=== PATIENT | female | born 1950 | race Caucasian/White ===

== ENCOUNTER 2023-04-27 14:36 | Emergency (ER) | payer MEDICARE, SELFPAY ==
--- NOTE | ~2023-04-27 | US_ITS ---
EXAMINATION: US pelvic complete w TV DATE: 04/27/2023 17:57 INDICATION: Postmenopausal bleeding. TECHNIQUE: Multiple transabdominal and transvaginal sonographic images of the pelvis were obtained. COMPARISON: None. FINDINGS: TRANSABDOMINAL ULTRASOUND: The uterus measures 10.4 x 5.8 x 6.1 cm. There is no free fluid in the pelvis. TRANSVAGINAL ULTRASOUND: The endometrial complex measures 13 mm in thickness. There are 2.5 cm and 2.5 cm intramural fibroids. There is a 5.4 x 3.5 x 4.6 cm heterogeneous mass in the cervix. The ovaries are not visualized. IMPRESSION: 1. 5.4 cm heterogeneous mass in the cervix suspicious for malignancy. 2. Thickened endometrial complex, which may be secondary to obstruction in the cervix. Endometrial ca rcinoma is not excluded. 3. Uterine fibroids. Reviewed, dictated and finalized at location E. L SALES MANAGER IMPRESSION: 1. 5.4 cm heterogeneous mass in the cervix suspicious for malignancy. 2. Thickened endometrial complex, which may be secondary to obstruction in the cervix. Endometrial carcinoma is not excluded. 3. Uterine fibroids.
[2023-04-27 14:37] VITALS: BP 183/82; PULSE 93; RESP 16; TEMP 36.6; O2SAT 98
[2023-04-27 14:45] VITALS: PULSE 90; RESP 18; O2SAT 98
[2023-04-27 15:20] LABS: Basophils Absolute Auto 0.1 K/mm3 (0.0-0.1); Basophils Percent Auto 0.8 % (0.2-1.2); Eosinophils Absolute Auto 0.1 K/mm3 (0-0.3); Eosinophils Percent Auto 0.8 % (0-4.4); Hematocrit 45.7 % (37.0-47.0); Immature Granulocyte Absolute 0.03 K/mm3 (0.00-0.031); Immature Granulocyte Percent A 0.3 % (0-0.5); Lymphocytes Percent Auto 16.2 % (18.3-44.2); Mean Corpuscular HGB Conc 32.8 g/dl (32-36); Mean Corpuscular Hemoglobin 29.8 pg (26-34); Mean Corpuscular Volume 90.7 fl (80-100); Mean Platelet Volume 9.1 fl (7.4-10.4); Monocytes Percent Auto 9.4 % (2.6-8.5); Neutrophils Absolute Auto 7.6 K/mm3 (1.3-6.7); Neutrophils Percent Auto 72.5 % (45.5-73.1); Platelet Count Result 257 k/mm3 (150-375); Red Blood Count 5.04 M/mm3 (4.2-5.4); Red Cell Distribution Width 13.5 % (11.5-14.5); White Blood Count 10.5 K/mm3 (4.5-10.0)
[2023-04-27 15:31] LABS: Prothrombin Time 13.7 Seconds (11.1-14.7)
[2023-04-27 15:32] LABS: Bacteria Urine None Seen /hpf; Need Manual Microscopic Reviewed; Non Pathogenic Casts 0-2; Partial Thromboplastin Time 27.5 SECONDS (22.3-36.8); RBC Urine >100 /hpf (0-2); Squamous Epithelial Cell Urine None seen /hpf (Few); WBC Urine 21-50 /hpf
[2023-04-27 15:36] LABS: Appearance Urine Turbid (Clear); Bilirubin Urine 1+ (Negative); Blood Urine 3+ (Negative); Color Urine Red (Yellow); Glucose Urine UA Negative (Negative); Ketones Urine Negative (Negative); Leukocyte Esterase Ur 1+ LEU/UL (Negative); Nitrate Urine Negative (Negative); Protein Urine 2+ mg/dL (Negative); Specific Grav Ur 1.027 (1.001-1.035); pH Urine 5.5 (5.0-9.0)
[2023-04-27 15:38] LABS: Alanine Aminotransferase 21 U/L (6-35); Albumin Level 4.4 g/dL (3.5-5.1); Alkaline Phosphatase 166 U/L (38-126); Anion Gap 9 mmol/L (8-16); Aspartate Amino Transferase 31 U/L (14-36); Bilirubin,Total 0.6 mg/dL (0.2-1.3); Blood Urea Nitrogen 15 mg/dL (7-17); Calcium 9.7 mg/dL (8.4-10.2); Carbon Dioxide 25 mmol/L (22-30); Chloride 106 mmol/L (98-107); Estimated CRCL calculation 54 ml/min; Estimated Glomerular Filt Rate > 60; Glucose 112 mg/dL (65-110); Potassium 3.9 mmol/L (3.4-5.0); Sodium 140 mmol/L (137-145)
[2023-04-27 15:39] LABS: Add Urine Microscopic? YES
[2023-04-27 16:40] VITALS: BP 177/84; PULSE 84; RESP 16; O2SAT 98
--- NOTE | 2023-04-27 16:58 | ED.FEMALEGU ---
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 Reports over the last couple of weeks she has had pelvic cramping. Reports the last couple of days she started to develop vaginal bleeding. Denies fever, vomiting or dysuria. Related Data Allergies Allergy/AdvReac Type Severity Reaction Status Date / Time Latex, Natural Rubber Allergy Redness of Verified 04/27/23 14:41 Skin Review of Systems Review of Systems: CONSTITUTIONAL: Denies fever GASTROINTESTINAL: Reports pelvic cramping. GENITOURINARY: Denies dysuria or hematuria. All systems reviewed & are unremarkable except as noted in HPI and below PMFSH Past Medical History Medical History (Updated 04/27/23 @ 18:37 by Karuna Haywood PA-C) History of hypertension Social History Social History (Updated 04/27/23 @ 17:08 by Karuna Haywood PA-C) Smoking status: Never smoker Exam Narrative: GENERAL: Well-appearing, well-nourished, and in no acute distress. HEAD: Normocephalic, atraumatic. EYES: EOMI. CHEST: Clear to auscultation. No respiratory distress. No wheezes rales or rhonchi HEART: Regular rate and rhythm. No murmur heard. Normal peripheral pulses. ABDOMEN: Soft, nontender, nondistended, normal active bowel sounds. EXTREMITIES: Normal range of motion. No edema. SKIN: Warm, dry, no rash. NEURO: No focal deficits. Alert and oriented x3. PSYCH: Normal mood and affect PELVIC: Small amount of dark red blood in the vaginal vault. Abnormal cervical polyp/lesion noted Course Course Emergency Course: patient and family updated on workup and agree with plan of care Consultations Consultation #1: Spoke with Dr. Schroeder about patient and workup who will follow up in clinic Date: 04/27/23 Vital Signs Vital signs: Vital Signs Temperature 97.9 F 04/27/23 14:37 Pulse Rate 93 04/27/23 14:37 Respiratory Rate 16 04/27/23 14:37 Blood Pressure 183/82 H 04/27/23 14:37 Pulse Oximetry 98 04/27/23 14:37 Oxygen Delivery Room Air 04/27/23 14:37 Temperature 97.9 F 04/27/23 14:37 Pulse Rate 84 04/27/23 16:40 Respiratory Rate 16 04/27/23 16:40 Blood Pressure 177/84 H 04/27/23 16:40 Pulse Oximetry 98 04/27/23 16:40 Oxygen Delivery Room Air 04/27/23 14:37 MDM - Female Genitourinary MDM Narrative Medical decision making narrative: Patient presents to the emergency department for abnormal uterine bleeding. Blood pressure elevated, patient is asymptomatic with this. She did down trend without intervention. Her other vitals are normal. CBC with mild leukocytosis to 10.5. Metabolic panel without concerning findings. Urine without evidence of infection. This will be sent for culture. Patient given dose of antibiotics IV. I did see an abnormal lesion on her cervix on exam. Small amount of dark red blood in the vaginal vault. Pelvic ultrasound shows a 5.4 cm heterogenous mass in the cervix suspicious for malignancy. Also shows a thickened endometrial complex. Patient and family updated on workup and agree with plan of care. Spoke with Dr. Schroeder about patient and workup who will follow up in clinic Differential Diagnosis Differential diagnosis: Likely urinary tract infection and other ( cervical cancer, endometrial cancer) Lab Data Attestation: I reviewed the patient's lab results. 04/27/23 15:13 04/27/23 15:13 Labs: Lab Results 04/27/23 Range/Units 15:13 WBC 10.5 H (4.5-10.0) K/mm3 RBC 5.04 (4.2-5.4) M/mm3 Hgb 15.0 (12.0-15.0) g/dL Hct 45.7 (37.0-47.0) % MCV 90.7 (80-100) fl MCH 29.8 (26-34) pg MCHC 32.8 (32-36) g/dl RDW 13.5 (11.5-14.5) % Plt Count 257 (150-375) k/mm3 MPV 9.1
== END 2023-04-27 18:55 | disposition home or self-care (01) ==
PROVIDERS: Student in an Organized Health Care Education/Training Program; Emergency Provider Physician Assistant; PCP Internal Medicine
DX: N93.9 Abnormal uterine and vaginal bleeding, unspecified (principal); N88.9 Noninflammatory disorder of cervix uteri, unspecified; R93.89 Abnormal findings on diagnostic imaging of other specified body structures; N39.0 Urinary tract infection, site not specified; I10 Essential (primary) hypertension
CPT/HCPCS: 36415; 76830; 76856; 80053; 81001; 85025; 85610; 85730; 86850; 86900; 86901; 87086; 96365; 99284; J0696

== ENCOUNTER 2023-06-16 01:10 | Day surgery (SDC) | payer MEDICARE, SELFPAY ==
[2023-06-09 13:22] VITALS: BMI 36.0
--- NOTE | 2023-06-09 13:36 | PC.NURSE ---
Report to the Outpatient Waiting Room, entrance under the green pavilion located off [facility], at time __1030 on date __06/16/23 . Planned Procedure Time: ___829 . Time changes happen often and if your time is changed the preop area will call you the afternoon before. - You and your visitor will be asked to self-screen and do not enter if you have any COVID symptoms. - A mask is optional within the hospital at this time. Patients may have clear liquids (water, carbonated beverages, clear teas, apple juice) until 3 hours prior to surgery with a maximum of 20 ounces. - No food from midnight until time of surgery - Infants may have breast milk until 4 hours before surgery, infant formula 6 hours prior to surgery. - Children will be allowed to drink immediately following surgery. If applicable, please bring a bottle or sippy cup to assist with drinking. Juice, water, soda, and popsicles are readily available. For infants on formula, please bring formula the day of surgery. Pacifiers are allowed. Take the following medications with a SIP of water the morning of surgery: __AMLODIPINE, METOPROLOL DO NOT STOP ANY OF YOUR OTHER PRESCRIPTION MEDICATIONS PRIOR TO SURGERY ?EXCEPT THE FOLLOWING Medications to discontinue - _IBUPROFEN, MELOXICAM PER DR. BARBA - CALL FOR INSTRUCTIONS_ Medications to discontinue per ANESTHESIA -_SUPPLEMENTS 3 DAYS PRIOR TO SURGERY, Date to take last dose 06/12/23_ Please no make-up, nail kazakh, hairspray, perfume, deodorant, or body powder the day of surgery. No jewelry (including any body piercings) or valuables the day of surgery, leave them at home. Please take a shower or bath the night before, or the morning of, surgery with an antibacterial soap. Wear comfortable, loose fitting clothing. Children are encouraged to wear pajamas. - Jewelry must be removed prior to entering the operating room. Rings and piercings that are not removed may be cut off. - The hospital will not accept responsibility for valuables. - Please leave all valuables, including medications, at home the day of surgery. If you are going home after surgery, a licensed sales route driver must drive you home. - NO public transportation without another adult if you receive anesthesia. - We recommend that an adult stay with you for 24 hours following discharge. - We also recommend that you do not drive, make important decision, drink alcoholic beverages, or take any drugs that were not prescribed by your health care provider for at least 24 hours after your discharge time. For Pediatric surgeries, we recommend two adults accompany the child home. Follow any additional instructions given to you from your surgeon. If you or anyone in your household have experienced Covid symptoms in the past week, please notify your surgeon or the nurse liaison at the phone number below for possible testing. Telephone instructions given to ___PT and asked if any additional questions and then verbalized understanding. Patient advised to call surgeon office or pre surgery nurse liaison [phone] if any additional questions.
--- NOTE | 2023-06-14 16:40 | PM.IMHP ---
H&P: HPI History of Present Illness Date/Time: 06/14/23 16:40 72-year-old female presents for evaluation regarding postmenopausal bleeding. Was seen emergency room due to heavy vaginal bleeding which has since resolved. Ultrasound performed as revealed enlarged uterus with 13mm thickness of the endometrium, as well as multiple fibroids. Also a 5x4 by for mass in the cervix was noted on ultrasound. Chief Complaint: Postmenopausal bleeding Review of Systems Review of Systems: All systems reviewed & are unremarkable except as noted in HPI and below PMFSH Past Medical History Medical History Anxiety Arthritis Breast cancer Cervical mass History of hypertension Hyperlipidemia Osteoporosis Vitamin D deficiency Surgical History Surgical History H/O breast surgery breast nodule removed/lymph node removed History of tonsillectomy Family History Family History Mother Pancreatic cancer Hypertension Son Kidney disorder Heart disease Cerebrovascular accident Diabetes mellitus type 2 Father Hypertension Diabetes mellitus type 2 Larynx cancer Social History Social History Smoking status: Never smoker Second hand tobacco smoke exposure: No Alcohol intake: current Alcohol use details: RARELY - MAYBE 4 DRINKS A YEAR Substance use: never Substance use type: does not use Do You Feel Safe in your Home?: Yes Lack of Transportation: No Lack of Food: Never True Current Housing: I Have Housing Concerned About Future Housing: No Difficulty Paying Gas/Electric Bills: No Difficulty Paying for Meds: No Currently Unemployed: No Education: High School Diploma/GED Difficulty w/ Childcare or Family Care: No Living arrangements: with family Additional living arrangements comments: Occupation/Education: retired Gender identity (if verbalized by the patient): Female Sexual Orientation (if Verbalized by the Patient): Straight or Heterosexual Spiritual care concerns: No Meds Home Medications and Allergies Home Medications Medication Instructions Recorded Confirmed Type amlodipine 10 mg tablet 10 mg PO DAILY 05/09/23 06/09/23 History cetirizine 10 mg capsule (Zyrtec) 10 mg PO DAILY PRN Congestion 05/09/23 06/09/23 History choline bitartrate 650 mg tablet 650 mg PO DAILY 05/09/23 06/09/23 History cyanocobalamin (vitamin B-12) 1,000 mcg PO DAILY 05/09/23 06/09/23 History 1,000 mcg capsule lutein 20 mg capsule 20 mg PO DAILY 05/09/23 06/09/23 History meloxicam 7.5 mg tablet 7.5 mg PO DAILY PRN Pain 05/09/23 06/09/23 History metoprolol tartrate 50 mg tablet 50 mg PO BID 05/09/23 06/09/23 History montelukast 10 mg tablet 10 mg PO DAILY 05/09/23 06/09/23 History rosuvastatin 40 mg tablet 40 mg PO DAILY 05/09/23 06/09/23 History ibuprofen 200 mg tablet 400 mg PO TID PRN Pain 06/09/23 06/09/23 History turmeric 400 mg capsule 400 mg PO DAILY 06/09/23 06/09/23 History Allergies Allergy/AdvReac Type Severity Reaction Status Date / Time Latex, Natural Rubber Allergy Redness of Verified 06/09/23 13:15 Skin adhesive tape AdvReac SKIN Verified 06/09/23 13:16 IRRITATION Exam Const: General: cooperative, healthy appearing and comfortable Resp: Effort & Inspection: normal respiratory effort Auscultation: clear to auscultation bilaterally Cardio: Rate: regular rate Rhythm: regular rhythm GI: Inspection: normal to inspection Auscultation: normal bowel sounds : External Female Exam: normal external appearance Speculum Exam - Vagina: normal appearance of the vagina Speculum Exam - Cervix: Nabothian cyst present Bimanual exam- vagina & uterus: enlarged ( 10-12 week size) Bimanual Exam- Adnexa, other: normal adnexae A
[2023-06-16] MEDS: ACETAMINOPHEN 500 MG TABLET 1000 MG PO (06:42)
[2023-06-16 06:49] VITALS: BP 138/94; PULSE 76; RESP 16; TEMP 36.2; O2SAT 99
--- NOTE | 2023-06-16 06:54 | WPDANESEPPF ---
Anes - Initial Pre Proc Eval Procedure: Operation Date: 06/16/23 08:30 Proposed Procedures p Hysteroscopy Dilation and Curettage - Brandt Schroeder MD s Loop Electrical Excision Procedure - Brandt Schroeder MD Date/Time: 06/16/23 06:54 Surgeon: Brandt Schroeder MD Pre Op Diagnosis: Post Menopausal Bleeding, Cervical Polyp Patient Data Age: 72 Gender: F Height: 1.6 m Weight: 96.5 kg Last Vital Signs Temp 36.2 C L 06/16/23 06:49 Pulse 76 06/16/23 06:49 Resp 16 06/16/23 06:49 BP 138/94 H 06/16/23 06:49 Pulse Ox 99 06/16/23 06:49 O2 Del Method Room Air 06/16/23 06:49 Allergies Allergy/AdvReac Type Severity Reaction Status Date / Time Latex, Natural Rubber Allergy Redness of Verified 06/16/23 06:34 Skin adhesive tape AdvReac SKIN Verified 06/16/23 06:34 IRRITATION Home Medications Medication Instructions Recorded Confirmed Type amlodipine 10 mg tablet 10 mg PO DAILY 05/09/23 06/09/23 History cetirizine 10 mg capsule (Zyrtec) 10 mg PO DAILY PRN Congestion 05/09/23 06/09/23 History choline bitartrate 650 mg tablet 650 mg PO DAILY 05/09/23 06/09/23 History cyanocobalamin (vitamin B-12) 1,000 mcg PO DAILY 05/09/23 06/09/23 History 1,000 mcg capsule lutein 20 mg capsule 20 mg PO DAILY 05/09/23 06/09/23 History meloxicam 7.5 mg tablet 7.5 mg PO DAILY PRN Pain 05/09/23 06/09/23 History metoprolol tartrate 50 mg tablet 50 mg PO BID 05/09/23 06/09/23 History montelukast 10 mg tablet 10 mg PO DAILY 05/09/23 06/09/23 History rosuvastatin 40 mg tablet 40 mg PO DAILY 05/09/23 06/09/23 History ibuprofen 200 mg tablet 400 mg PO TID PRN Pain 06/09/23 06/09/23 History turmeric 400 mg capsule 400 mg PO DAILY 06/09/23 06/09/23 History Patient hx anesthesia problems: post op nausea/vomiting Family hx anesthesia problems: none Results Review: All pre-operative results and documents have been reviewed as part of the pre-operative evaluation. [facility] Past Medical History Medical History Anxiety Arthritis Breast cancer Cervical mass History of hypertension Hyperlipidemia Osteoporosis Vitamin D deficiency Surgical History Surgical History H/O breast surgery breast nodule removed/lymph node removed History of tonsillectomy Family History Family History Mother Pancreatic cancer Hypertension Son Kidney disorder Heart disease Cerebrovascular accident Diabetes mellitus type 2 Father Hypertension Diabetes mellitus type 2 Larynx cancer Social History Social History Smoking status: Never smoker Second hand tobacco smoke exposure: No Alcohol intake: current Alcohol use details: RARELY - MAYBE 4 DRINKS A YEAR Substance use: never Substance use type: does not use Do You Feel Safe in your Home?: Yes Lack of Transportation: No Lack of Food: Never True Current Housing: I Have Housing Concerned About Future Housing: No Difficulty Paying Gas/Electric Bills: No Difficulty Paying for Meds: No Currently Unemployed: No Education: High School Diploma/GED Difficulty w/ Childcare or Family Care: No Living arrangements: with family Additional living arrangements comments: Occupation/Education: retired Gender identity (if verbalized by the patient): Female Sexual Orientation (if Verbalized by the Patient): Straight or Heterosexual Spiritual care concerns: No Anes - Eval Final PreProcedure Day of Procedure 06/16/23 06:54 Patient weight: obese Lungs: clear to auscultation Airway: Mallampati scale class III Neurological: alert and oriented Last oral intake: >/= 8 hours ASA classification: III Emergent: no Anesthetic plan: proceed Anesthesia type and monitoring: general GIVS and
[2023-06-16] MEDS: LACTATED RINGERS 1,000 ML 30 ML IV CONT (07:08)
--- NOTE | 2023-06-16 08:43 | WPDHPUPDATE1 ---
History and Physical Update Update Date/Time: 06/16/23 08:43 History and Physical has been reviewed, including an updated exam of the patient. There are NO changes in the patient's condition. Risks, benefits, and alternatives have been discussed and questions answered. Patient agrees to proceed with procedure.
--- NOTE | 2023-06-16 09:25 | W.PM.PROC2 ---
Procedure Note - Detailed Date of Procedure 06/16/23 Pre-op Diagnosis 1. Postmenopausal bleeding 2. Endocervical polyp 3. Cervical mass on CT scan Post-op Diagnosis Same Procedure Performed 1. Diagnostic hysteroscopy 2. Endometrial polypectomies 3. Removal of endo cervical polyp 4. LEEP conization Surgeon Brandt Schroeder MD Anesthesia MAC Findings 1. Hysteroscopic exam revealed multiple polyps and small fibroids impinging the endometrial cavity 2. Endocervical polyp Description of Procedure Patient was prepped and draped in usual manner for this procedure. Cervix was dilated to allow the hysteroscope to be placed which then did reveal endometrial polyps. Also multiple fibroids impinging on the endometrial cavity. Using the appropriate instrumentation through the hysteroscope the polyps were removed. Curetting then of the rest of the cavity was performed. There was no significant bleeding from this portion of the procedure. Endometrial polyp was then removed without difficulty, LEEP specimen was obtained in both an ecto and endocervical manner. Bed of the biopsy site was cauterized and at this point the patient was sent to recovery room in stable condition. Estimated Blood Loss 10 Drains No Packing No Pathology Yes Complications No immediate complications Condition Stable Disposition PACU [facility] Billing Surgery - Charge Forward: Surgery Billing
[2023-06-16 09:31] VITALS: BP 132/96; PULSE 74; RESP 12; O2SAT 95
[2023-06-16 10:00] VITALS: BP 132/58; PULSE 71; RESP 16
[2023-06-16 10:21] VITALS: BP 130/56; PULSE 67; RESP 16
== END 2023-06-16 10:28 | disposition home or self-care (01) ==
PROVIDERS: PCP Internal Medicine; Visit Provider Obstetrics & Gynecology
PROC: 0U5B8ZZ Destruction of Endometrium, Via Natural or Artificial Opening Endoscopic (ICD-10-PCS; CPT 58563; principal; 2023-06-16 08:30)
PROC: 0UBC7ZZ Excision of Cervix, Via Natural or Artificial Opening (ICD-10-PCS; CPT 57522; 2023-06-16 08:30)
DX: N84.1 Polyp of cervix uteri (principal); D25.9 Leiomyoma of uterus, unspecified; N88.8 Other specified noninflammatory disorders of cervix uteri; N95.0 Postmenopausal bleeding; I10 Essential (primary) hypertension; E78.5 Hyperlipidemia, unspecified; E55.9 Vitamin D deficiency, unspecified; F41.9 Anxiety disorder, unspecified; M81.0 Age-related osteoporosis without current pathological fracture; E66.9 Obesity, unspecified; Z68.37 Body mass index [BMI] 37.0-37.9, adult; Z79.1 Long term (current) use of non-steroidal anti-inflammatories (NSAID); Z98.890 Other specified postprocedural states; Z85.3 Personal history of malignant neoplasm of breast; Z80.0 Family history of malignant neoplasm of digestive organs; Z80.2 Family history of malignant neoplasm of other respiratory and intrathoracic organs; Z82.49 Family history of ischemic heart disease and other diseases of the circulatory system
CPT/HCPCS: 58558; 57522; 88305; 88307; A9270; J1100; J2405; J2704; J3010; J7120

== ENCOUNTER 2024-12-19 12:02 | Outpatient (CLI) | payer MEDICARE, SELFPAY ==
--- NOTE | ~2024-12-19 | MM_ITS ---
EXAMINATION: MM screening [facility] BI w fahad HISTORY: Screening TECHNIQUE: Craniocaudal and mediolateral oblique 3-D tomosynthesis images were obtained and synthetic 2-D images were generated. CAD analysis was submitted and interpreted. COMPARISON: No prior mammogram is available for comparison at this institution. BREAST PARENCHYMAL COMPOSITION: Not dense: There are scattered areas of fibroglandular density. FINDINGS: There is distortion in the upper outer quadrant of the right breast with skin thickening surrounding the nipple. These findings are likely related to prior lumpectomy and possible radiation therapy. Clinically correlate. There is no mammographic evidence for malignancy in the left breast. IMPRESSION: 1. Distortion in the upper outer quadrant of the right breast with nearby skin thickening. Correlate for history of prior lumpectomy/radiation therapy. 2. Recommend comparison to previous outside mammograms. BI-RADS Category 0: Incomplete: Needs additional imaging evaluation. Reviewed, dictated and finalized at location B.
--- OUTSIDE RECORDS SUMMARY | 2024-12-19 12:20 | XMS_ITS ---
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 Past Treatment and Therapy Plans No past plan information found. Radiation Treatments * Course [id number] 01/24/2024 - 02/03/2024 Treatment Period Energy Fraction Dose Fractions Total Dose Plans Planned HN_Bilateral 01/24/2024 - 02/03/2024 200 9 / 6,000 Reference Points Delivered DPV_HN 01/24/2024 - 02/03/2024 1,800 Lifetime Dose Tracking * Chemical Lifetime Dose Automatic Entry Manual Entr y Fluoro Time 1.7 minutes 1.7 minutes 0 minutes Air kerma at the reference point (Ka,r) 15 mGy 1 5 mGy 0 mGy DLP 1,872 mGycm 1,872 mGycm 0 mGycm
--- OUTSIDE RECORDS SUMMARY | 2024-12-19 12:20 | XMS_ITS | Clinical Summary ---
Author Organization [facility] Address [address] [place] [id number] Care Team Providers Care Data Coder Operator Name Role Phone Inga Gunn MD Primary Care Provide r Yoni Brady MD Unavailable Scot De Paz MD Unavailable [phone] Brandt Shcroeder MD Unavailable [phone] Allergies Active Allergy Reactions Criticality Noted Date Comments Epinephrine Palpitations Low 11/03/1997 Latex Blisters High 11/25/2023 Medications amLODIPine (NORVASC) 10 mg tabletIndicatio ns:hypertension Take 1 tablet (10 mg total) by mouth paper cleaner before breakfast Active cetirizine (ZyrTEC) 10 mg tabletIndicatio ns:Seasonal Allergic Rhinitis Take 1 tablet (10 mg total) by mouth paper cleaner before breakfast Active cyanocobalamin (Vitamin B-12) 1,000 mcg tabletIndicatio ns:Prevention of Vitamin B12 Deficiency Take 1 tablet (1,000 mcg total) by mouth paper cleaner before breakfast 8 Active metoprolol tartrate (LOPRESSOR) 50 mg immediate release tabletIndicatio ns:hypertension Take 1 tablet (50 mg total) by mouth paper cleaner before breakfast 4 Active predniSONE (DELTASONE) 10 mg tablet Take 1 tablet (10 mg) by mouth daily as needed (as needed for poison artem) Active rosuvastatin (CRESTOR) 40 mg tabletIndicatio ns:hyperlipidem ia,patient hasn't started medication 11/25/2023 Take 1 tablet (40 mg total) by mouth nightly 4 Active montelukast (SINGULAIR) 10 mg tabletIndicatio ns:Seasonal Allergic Rhinitis Take 1 tablet (10 mg total) by mouth nightly Active lutein 40 mg capsuleIndicati ons:eye supplement Take 1 capsule by mouth paper cleaner before breakfast Active acetaminophen (TYLENOL) 325 mg tablet Take 2 tablets (650 mg total) by mouth every 6 (six) hours as needed for pain 1st line 4 Active ibuprofen (ADVIL,MOTRIN) 400 mg tablet Take 1 tablet (400 mg total) by mouth every 6 (six) hours as needed for pain 2nd line 4 Active docusate sodium (COLACE) 100 mg capsuleIndicati ons:constipatio n Take 1 capsule (100 mg total) by mouth 2 (two) times a day as needed for constipation 4 Active gabapentin (NEURONTIN) 300 mg capsule Take 1 capsule (300 mg total) by mouth 3 (three) times a day for 7 days, THEN 1 capsule (300 mg total) 2 (two) times a day for 7 days, THEN 1 capsule (300 mg total) daily for 7 days. 42 capsule 4 Active chlorhexidine (PERIDEX) 0.12 % solution Apply 15 mL to the mouth or throat 3 (three) times a day 473 mL 4 Active oxyCODONE (ROXICODONE) 5 mg immediate release tabletIndicatio ns:Pain Take 1 tablet (5 mg total) by mouth every 4 (four) hours as needed for pain 20 tablet 4 Active amoxicillin (AMOXIL) 875 mg tablet TAKE 1 TABLET EVERY 12 HOURS DAILY 4 Active traMADoL (ULTRAM) 50 mg tablet Take 1 tablet (50 mg total) by mouth every 6 (six) hours as needed for pain for up to 15 days 60 tablet 4 Active naloxone (NARCAN) 4 mg/actuation spray,non-aeros ol Administer 1 spray into affected nostril(s) as needed for opioid reversal or respiratory depression Call 911. Administer a single spray in one nostril. Repeat every 3 minutes as needed if no or minimal response. 1 each 4 Active al & mag hydroxide simethicone-dip henhydramine-li docaine-nystati n (MAGIC MOUTHWASH) suspension 1-6-3-1Indicati ons:Radiation-I nduced Mucositis Swish and swallow 10 mL every 3 (three) hours as needed (Stomatitis) 500 mL 2 4 Active Active Problems Problem Noted Date Diagnosed Date Tongue cancer 11/15/2023 Encounters Date Type Department Care Team Description 11/30/2024 Telephone [facility] Medicine Otolaryngology Head-Neck Division [address] [place] [phone] Meli Espinoza RN 10/22/2024 11:00 AM CDT Office Visit [facility] Medicine Otolaryngology Head-Neck Division [address] [place] [phone] Yoni Brady MD Tongue cancer (HCC) (Primary Dx) 10/19/2024 9:36 AM CDT - 10/19/2024 11:59 PM CDT Hospital Encounter [address] [address] Tongue cancer (HCC) Discharge Disposition: Discharge to home or self care 10/18/2024 Telephone [facility] [address] [place] [address] Cisco Peña from Last 3 Months Immunizations Immunization Administration Dates Next Due Influenza, Quadrivalent, Hig h Dose, Preservative Free, Intrr 12/27/2022,01/17/2022,12/22/2020,12/18 Influenza, Quadrivalent, Spl it, Intramuscular 12/22/2020,12/20/2019 Influenza, Trivalent, Adjuva nted, Intramuscular 01/03/2019 Influenza, Trivalent, High D ose, Split, Preservative Free, Intramuscular 01/03/2019,01/12/2018,01/14/2017,01/30,02/10/2014,01/17/2013 Influenza, Trivalent, IM (MDV) 01/17/2013 Pfizer SARS-CoV-2 Monovalent Vaccination (12+ Yrs) PURPLE 08/23/2021 Pneumococcal Conjugate PCV 13 01/12/2018 Pneumococcal Polysaccharide PPV23 02/21/2019 Td, adsorbed 04/28/2022 Tdap 01/17/2013 ZOSTER Recombinant 05/10/2019,01/03/2019 Surgical History Surgery Date Site/Laterality Comments DILATION AND CURETTAGE OF UTERUS 05/20/2023 - 06/19/2023 BREAST LUMPECTOMY Right 26 years ago (plus chemoradiation) Medical History Medical History Date Comments PONV (postoperative nausea and vomiting) Cancer (HCC) Hypertension Tongue cancer Breast cancer (HCC) Family History Medical History Relation Name Comments Cancer Father Cancer Mother Breast cancer Sister Anesthesia problems Neg Hx Malig Hypertension Neg Hx Malig Hyperthermia Neg Hx Pseudochol deficiency Neg Hx Relation Name Status Comments Father Mother Sister Social History Tobacco Use Types Packs/Day Years Used Date Smoking Tobacco: Never Smokeless Tobacco: Never Tobacco Cessation:Counseling Given: Not Answered OASIS D0700: Social Isolation Answer Da te Recorded Frequency of experiencing loneliness or isolatio n Never 12/30/2023 OASIS A1250: Transportation Answer Date Recorded Lack of Transportation (Medical) No 12/30/2023 Lack of Transportation (Non-Medical) No 12/30/2023 Patient Unable or Declines to Respond No 12/30/2023 OASIS B1300: Health Literacy Answer Prakash e Recorded Frequency of needing help to read materials from doctor or pharmacy Never 12/30/2023 AUDIT-C Answer Date Recorded Q1: How often do you have a drink containing alc ohol? Monthly or less 12/08/2023 Q2: How many drinks containi ng alcohol do you have on a typical day when you are drinking? 1 or 2 12/08/2023 Q3: How often do you have si x or more drinks on one occasion? Never 12/08/2023 Personal Safety Answer Date Recorded Have you ever been in or are you currently in a harmful physical or emotional relationship or is someone making you feel afraid or unsafe? Denies 12/08/2023 Comments Unknown Sex and Gender Information Value Date Recorded Sex Assigned at Not on file Legal Sex Female 9:30 AM CDT Gender Identity Female 12/05/2023 4:24 PM CDT Sexual Orientation Not on file Obstetrics History Last Filed Vital Signs Vital Sign Reading Time Taken Comments Blood Pressure 153/73 02/02/2024 2:36 PM REFERRAL MANAGEMENT LIAISON Pulse 85 02/02/2024 2:36 PM REFERRAL MANAGEMENT LIAISON Temperature 36.4 C (97.5 F) 12/30/2023 10:04 AM CDT Respiratory Rate 18 12/30/2023 10:04 AM CDT Oxygen Saturation 99% 02/02/2024 2:36 PM REFERRAL MANAGEMENT LIAISON Inhaled Oxygen Concentration - - Weight 86.3 kg (190 lb 3.2 oz) 10/22/2024 10:56 AM CDT Height 160 cm (5' 2.99) 04/23/2024 4:16 PM REFERRAL MANAGEMENT LIAISON Body Mass Index 33.7 04/23/2024 4:16 PM REFERRAL MANAGEMENT LIAISON Plan of Treatment Health Maintenance Due Date Last Done Comments Depression Screening 1950 Hepatitis C Screening 1950 Osteoporosis Screening-Bone Density Scan 1950 Hepatitis B Screening 1966 Well Visit 65+ 2013 Covid-19 Vaccine (2024-2 6 season) 2024 03/24/2023, 02/02/2022, 08/23/2021, Additional history exists Influenza Vaccine (#1) 2024 , 01/17/2022, 12/22/2020, Additional history exists Fall Risk Assessment 01/09/2025 01/10/2024, 12/16/19 24 DTaP/Tdap/Td Vaccine (3 - Td or Tdap) 04/28/2032 04/28/2022, 01/17/2013 Pneumococcal vaccine 65+ Completed 02/21/2019, 12/20 Zoster Vaccine Completed 05/10/2019, 01/03/2019 Medical Devices Implanted Type Area Intake Assessor Device Identifier Shelf Expiration Date Model / Serial / Lot [employer] Tissue Bioabsorbable Restrata Mini Matrix 100mg Synthetic Rmini-100 - [id number] - [id number] Implanted:Qty: 1 on 12/08/2023 by Yoni Brady MD at [facility] Left: Arm [employer] 12/21/2024 [id number]-100 / [id number] [employer] Glacier Microvascular 3.5mm Ring Pin Protective Cover Jaw Assembly Latex Free [id number] - [id number] Implanted:Qty: 1 on 12/08/2023 by Yoni Brady MD at [facility] Right: Neck [employer] Nadeen [id number] 01/18/2028 [id number] / / [id number] [employer] Retail Worker Anastomotic Microvascular Gold Stainless Steel Glacier Retail Worker 3.0mm [id number] - [id number] Implanted:Qty: 1 on 12/08/2023 by Yoni Brady MD at [facility] Right: Neck [employer] [id number] 03/06/2028 [id number] / / [id number] Procedures Procedure Name Priority Date/Time Associated Diagnosis Comments CT CHEST W CONTRAST Schedule Routine, Read Routine (OP Routine) 10/19/2024 10:20 [address] CDT Tongue cancer [address] SOFT TISSUE NECK W CONTRAST Schedule Routine, Read Routine (OP Routine) 10/19/2024 10:20 AM CDT Tongue cancer from Last 3 Months Results * CT Chest W Contrast (10/19/2024 10:20 AM CDT) Anatomical Region Laterality Modality Body N/A Computed Tomogra phy 11/07/2024 8:37 AM CDT Narrative 11/07/2024 8:46 AM CDT EXAM DESCRIPTION: CT CHEST W CONTRAST REASON FOR STUDY: tongue cancer Follow up tongue that was diagnosed last fall Surgery to tongue and neck TECHNIQUE: CT scan of the chest performed with intravenous contrast using helical scanning technique with dynamic intravenous contrast injection. Reconstructed coronal and sagittal MPR images reviewed. All images stored on PACS. Automated exposure control was used as a dose optimization technique for this examination. CONTRAST TYPE/DOSE: 75mL of IOVERSOL 350 MG IODINE/ML INTRAVENOUS SYRINGE injected via intravenous COMPARISON: CT chest 07/23/2024 FINDINGS: LUNGS: Stable 4 mm nodule in the right middle lobe (5/36). No new or enlarging pulmonary nodule. Unchanged chronic subpleural reticulations/opacity in the right middle lobe (5/53) and lingula (5/55). Small bibasilar atelectasis. No focal consolidation. No suspicious pulmonary nodule or mass. PLEURA: No effusion. No pneumothorax. MEDIASTINUM/SHONNA: No identified masses or abnormal nodes. HEART: Heart size is normal with no pericardial effusion. VASCULATURE: Atheromatous disease of the aorta with coronary artery calcification. No aneurysms of the aorta. AXILLA: No adenopathy. CHEST WALL: Postsurgical changes in the right breast. No suspicious findings in the right breast. Stable 1.1 cm soft tissue nodule in the left upper outer breast (7/34). No subcutaneous air. HARDWARE/LINES/TUBES: None. UPPER ABDOMEN: No significant abnormality. MUSCULOSKELETAL: Stable partially calcified nodule in the left upper back (07/13). Multilevel degenerative changes of the spine. No suspicious osseous findings OTHER: No other significant abnormality. IMPRESSION: 1. Stable 4 mm nodule in the right middle lobe. No new or enlarging pulmonary nodule. 2. No thoracic lymphadenopathy. 3. Stable 1.1 cm soft tissue nodule in the left upper outer breast. Correlate with mammography. THIS IS AN ELECTRONICALLY VERIFIED FINAL REPORT 11/07/2024 8:46 AM - Electronically signed by Laura Mancuso M.D. FT: FT Report ID: [id number] Reading Location: [id number] Procedure Note Laura Martinez MD - 11/07/2024 EXAM DESCRIPTION: CT CHEST W CONTRAST REASON FOR STUDY: tongue cancer Follow up tongue that was diagnosed last fall Surgery to tongue and neck TECHNIQUE: CT scan of the chest performed with intravenous contrast using helical scanning technique with dynamic intravenous contrast injection. Reconstructed coronal and sagittal MPR images reviewed. All images storedon PACS. Automated exposure control was used as a dose optimizationtechnique for this examination. CONTRAST TYPE/DOSE: 75mL of IOVERSOL 350 MG IODINE/ML INTRAVENOUS SYRINGE injected via intravenous COMPARISON: CT chest 07/23/2024 FINDINGS: LUNGS: Stable 4 mm nodule in the right middle lobe (5/36). No new or enlarging pulmonary nodule. Unchanged chronic subpleural reticulations/opacity in the right middle lobe (5/53) and lingula (5/55). Small bibasilar atelectasis. No focal consolidation. No suspiciouspulmonary nodule or mass. PLEURA: No effusion. No pneumothorax. MEDIASTINUM/SHONNA: No identified masses or abnormal nodes. HEART: Heart size is normal with no pericardial effusion. VASCULATURE: Atheromatous disease of the aorta with coronary artery calcification. No aneurysms of the aorta. AXILLA: No adenopathy. CHEST WALL: Postsurgical changes in the right breast. No suspiciousfindings in the right breast. Stable 1.1 cm soft tissue nodule in the left upperouter breast (). No subcutaneous air. HARDWARE/LINES/TUBES: None. UPPER ABDOMEN: No significant abnormality. MUSCULOSKELETAL: Stable partially calcified nodule in the left upper back (07/13). Multilevel degenerative changes of the spine. No suspiciousosseous findings OTHER: No other significant abnormality. IMPRESSION: 1. Stable 4 mm nodule in the right middle lobe. No new or enlarging pulmonary nodule. 2. No thoracic lymphadenopathy. 3. Stable 1.1 cm soft tissue nodule in the left upper outer breast. Correlate with mammography. THIS IS AN ELECTRONICALLY VERIFIED FINAL REPORT 11/07/2024 8:46 AM - Electronically signed by Laura Mancuso M.D. FT: FT Report ID: [id number] Reading Location: [place] [address] Yoni Brady MD IM CT PROCEDURES [place] Result * CT Neck Soft Tissue W Contrast (10/19/2024 10:20 AM CDT) Anatomical Region Laterality Modality Head and Neck N/A Computed Tomogra phy 11/05/2024 9:36 AM CDT Narrative 11/05/2024 9:45 AM CDT EXAM DESCRIPTION: CT SOFT TISSUE NECK WITH CONTRAST REASON FOR STUDY: Follow-up evaluation of unspecified laterality tongue cancer diagnosed fall without provision of totality of therapeutic interventions and no provision of metastatic disease burden. No provided patient complaints. No further provision of past medical history. Unspecified surgery to tongue and neck. TECHNIQUE: Post IV contrast scanning from skull base through lung apices. Reconstructed MPR images reviewed. All images stored on PACS. Automated exposure control was used as a dose optimization technique for this examination. CONTRAST TYPE/DOSE: 75 mL Optiray 350 injected via peripheral IV site without reported incident. COMPARISON: CT soft tissue neck/chest with contrast 07/23/2024; CT soft tissue neck with contrast 04/23/2024 and 11/30/2023; PET-CT 11/30/2023. FINDINGS: SOFT TISSUE: Redemonstration of extensive postsurgical/posttreatment changes of the right oral cavity through neck without CT evidence of discrete mass or focal enhancement to suggest residual or recurrent disease. ORAL CAVITY/FLOOR OF MOUTH, PHARYNX, LARYNX, HYPOPHARYNX: Apposition of the vocal folds as can be seen with breath holding and/or phonation compromises evaluation without overt evidence of acute abnormality. Otherwise, widely patent airway. Stable appearance of soft tissue violation of the right maxilla of the site of prior dental extraction. Correlate with direct visualization/dental evaluation. Patient edentulous of maxillary dentition and numerous chronically absent loci of mandibular dentition. LYMPHADENOPATHY: No lymphadenopathy by size criteria. MAJOR SALIVARY GLANDS: No CT evidence of discrete mass, focal fluid collection, edema, and/or acute inflammatory changes of the retained glandular architecture. THYROID: Normal size. No nodules greater than 1 cm. VASCULATURE: No occlusion or stenosis INTRACRANIAL/SKULL BASE/INCLUDED ORBITS: Limited intracranial evaluation. No gross evidence of acute intracranial process. No acute orbital abnormality. Ocular lenses and globes normal in conformation and position. PARANASAL SINUSES: Mucous retention cysts of the bilateral maxillary sinuses. Visualized mastoid air cells well-developed and well aerated. CERVICAL SPINE: Redemonstration of constellation of spondylolisthesis with straightening of the cervical lordosis, spondylosis, and degenerative disc disease of the cervical spine. LUNG APICES: No acute abnormality. OTHER: No other significant finding. IMPRESSION: 1. Redemonstration of extensive postsurgical/posttreatment changes of the right oral cavity through neck without CT evidence of discrete mass or focal enhancement to suggest residual or recurrent disease. 2. No lymphadenopathy by size criteria. THIS IS AN ELECTRONICALLY VERIFIED FINAL REPORT 11/05/2024 9:45 AM - Electronically signed by Lc Ramos M.D. MARLON: MARLON Report ID: [id number] Reading Location: [id number] Procedure Note Lc Ramos MD - 11/05/2024 EXAM DESCRIPTION: CT SOFT TISSUE NECK WITH CONTRAST REASON FOR STUDY: Follow-up evaluation of unspecified laterality tonguecancer diagnosed fall without provision of totality of therapeutic interventions and no provision of metastatic disease burden. No provided patient complaints. No further provision of past medical history. Unspecified surgery to tongue and neck. TECHNIQUE: Post IV contrast scanning from skull base through lung apices. Reconstructed MPR images reviewed. All images stored on PACS. Automated exposure control was used as a dose optimization technique for this examination. CONTRAST TYPE/DOSE: 75 mL Optiray 350 injected via peripheral IV site without reported incident. COMPARISON: CT soft tissue neck/chest with contrast 07/23/2024; CT soft tissue neck with contrast 04/23/2024 and 11/30/2023; PET-CT 11/30/2023. FINDINGS: SOFT TISSUE: Redemonstration of extensive postsurgical/posttreatmentchanges of the right oral cavity through neck without CT evidence of discrete massor focal enhancement to suggest residual or recurrent disease. ORAL CAVITY/FLOOR OF MOUTH, PHARYNX, LARYNX, HYPOPHARYNX: Apposition ofthe vocal folds as can be seen with breath holding and/or phonationcompromises evaluation without overt evidence of acute abnormality. Otherwise, widely patent airway. Stable appearance of soft tissue violation of the right maxilla of the site of prior dental extraction. Correlate with direct visualization/dental evaluation. Patient edentulous of maxillarydentition and numerous chronically absent loci of mandibular dentition. LYMPHADENOPATHY: No lymphadenopathy by size criteria. MAJOR SALIVARY GLANDS: No CT evidence of discrete mass, focal fluid collection, edema, and/or acute inflammatory changes of the retainedglandular architecture. THYROID: Normal size. No nodules greater than 1 cm. VASCULATURE: No occlusion or stenosis INTRACRANIAL/SKULL BASE/INCLUDED ORBITS: Limited intracranialevaluation. No gross evidence of acute intracranial process. No acute orbitalabnormality. Ocular lenses and globes normal in conformation and position. PARANASAL SINUSES: Mucous retention cysts of the bilateral maxillary sinuses. Visualized mastoid air cells well-developed and well aerated. CERVICAL SPINE: Redemonstration of constellation of spondylolisthesiswith straightening of the cervical lordosis, spondylosis, and degenerative disc disease of the cervical spine. LUNG APICES: No acute abnormality. OTHER: No other significant finding. IMPRESSION: 1. Redemonstration of extensive postsurgical/posttreatment changes ofthe right oral cavity through neck without CT evidence of discrete mass orfocal enhancement to suggest residual or recurrent disease. 2. No lymphadenopathy by size criteria. THIS IS AN ELECTRONICALLY VERIFIED FINAL REPORT 11/05/2024 9:45 AM - Electronically signed by Lc Ramos M.D. MARLON: MARLON Report ID: [id number] Reading Location: [place] [address] Yoni Deon Brady MD IMG CT PROCEDURES [place] Result from Last 3 Months Insurance [employer] [address] [employer] MED[employer]VANTAGE Advance Directives For more information, please contact: [phone] * Full Code (Latest Code Status on File) Date Activated Date Inactivated Comments 12/08/2023 6:04 PM 12/16/2023 5:34 PM Care Teams Data Coder Operator Relationship Specialty Start Date End Date Inga Gunn MD [address] [facility] [address] [place] [address] PCP - General Internal Medicine 11/10/23 Yoni Brady MD [address] [address] Consulting Physician Otolaryngology 12/27/23 Scot De Paz MD [address] [facility] [place] [address] Radiation Oncologist Radiation Oncology 12/27/23 Brandt Schroeder MD [address] [place] [address] Referring Physician Obstetrics and Gynecology 01/10/24
== END 2024-12-19 12:03 | disposition home or self-care (01) ==
LOC: CHSIMG 12:05
PROVIDERS: PCP Internal Medicine; Visit Provider Internal Medicine
DX: Z12.31 Encounter for screening mammogram for malignant neoplasm of breast (principal); R92.8 Other abnormal and inconclusive findings on diagnostic imaging of breast
CPT/HCPCS: 77063; 77067